=== PATIENT | male | born 1940 | race Caucasian/White ===

== ENCOUNTER 2019-03-17 18:26 | Emergency (ER) | payer OTHER ==
[~2019-03-17] VITALS: Ht 180.3 cm; Wt 81.7 kg
[2019-03-17] MEDS ORDERED: NORCO 5-325 TA1 EAC1 PO (18:38)
[2019-03-17] MEDS ORDERED: LISINOPRIL10 MG PO (18:38)
[2019-03-17] MEDS ORDERED: ONDANSETRON HCL4 M2 PO (18:39)
[2019-03-17 19:03] LABS: ABSOLUTE NEUTROPHILS 10.7 thou/uL (1.4-8.2); BASOPHILS 0.2 % (0.0-2.0); EOSINOPHILS 0.3 % (0.0-3.0); HEMATOCRIT 44.7 % (42.0-52.0); HEMOGLOBIN 14.9 gm/dL (14.0-18.0); LYMPHOCYTES 12.1 % (24.0-44.0); MCH 31.2 pg (26.0-34.0); MCHC 33.2 g/dL (28.0-37.0); MCV 93.8 fL (80.0-100.0); MONOCYTES 9.7 % (1.0-8.0); PLATELET COUNT 222 thou/uL (150-400); POLYS 77.7 % (36.0-66.0); RBC 4.77 mil/uL (4.50-6.00); RDW 13.5 % (10.5-14.5); WBC 13.7 thou/uL (4.0-11.0)
[2019-03-17 19:15] LABS: CALCIUM 10.1 mg/dL (8.5-10.1); CREATININE 1.2 mg/dL (0.7-1.3); POTASSIUM 3.9 mmol/L (3.5-5.1)
[2019-03-17 19:22] LABS: ALBUMIN 3.8 g/dL (3.4-5.0); TOTAL BILIRUBIN 0.7 mg/dL (<0.1-1.0); TOTAL PROTEIN 7.7 g/dL (6.4-8.2)
[2019-03-17 21:23] LABS: URINE BILIRUBIN NEGATIVE (Negative); URINE BLOOD NEGATIVE (Negative); URINE CLARITY CLEAR; URINE COLOR YELLOW; URINE GLUCOSE-RANDOM* NEGATIVE (Negative); URINE KETONES NEGATIVE (Negative); URINE LEUKOCYTES-REFLEX NEGATIVE (Negative); URINE NITRITE-REFLEX NEGATIVE (Negative); URINE PROTEIN (DIPSTICK) NEGATIVE (Negative); URINE SPECIFIC GRAVITY 1.015 (1.005-1.035)
[2019-03-17] MEDS ORDERED: CHLORPROMAZINE25 M1 PO (22:02)
[2019-03-17 22:05] VITALS: BP 120/50
--- NOTE | 2019-03-18 14:45 | EKG ---
[address] [employer] [place] [address] ELECTROCARDIOGRAM REPORT Name: MACK,WAI Jailyn Room #: [facility]P [facility]ales[facility] [id number] Admission: 03/17/19 Attend Phys: Discharge: 03/17/19 Date of : 36 Report #: [id number] THIS REPORT FOR: //name// [facility] ED Test Date: 2019-03-17 Test Time: 19:07:29 Pat Name: WAI GIRON Department: Room: Gender: M Hospital Security Officer: MARIBELL : 1940 Requested By: Juana Orosco Order Number: [id number] MD: Juan Lantigua Measurements Intervals Avery Rate: 71 P: 27 SD: 156 QRS: 8 QRSD: 95 T: 32 QT: 393 QTc: 428 Interpretive Statements Sinus rhythm Nonspecific T-wave abnormalities Baseline wander in lead(s) II,III,aVL,aVF,V1,V2 No previous ECG available for comparison Electronically Signed On 03-18-2019 14:44:53 CDT by Juan Lantigua [email or web address] <ELECTRONICALLY SIGNED> By: Juan Lantigua MD 03/18/19 1444 [id number] MD YE Mello
== END 2019-03-17 22:21 | disposition home or self-care (01) ==
LOC: ER 18:26
PROVIDERS: Physician Assistant
DX: R11.2 Nausea with vomiting, unspecified (principal); R06.6 Hiccough; I10 Essential (primary) hypertension; Z91.040 Latex allergy status; Z88.0 Allergy status to penicillin